=== PATIENT | female | born 1945 | race Caucasian/White ===

== ENCOUNTER 2024-10-30 10:47 | Day surgery (SDC) | payer MEDICARE, SELFPAY ==
--- NOTE | 2024-10-27 11:56 | EXP.HP ---
History of Present Illness *Admission Date: 10/30/24 *History of present illness: Mrs. Miller is a 78-year-old female who is here for screening/surveillance colonoscopy. She does have a history of chronic constipation. She did have a colonoscopy with me in March 2018 and had resolving self-limited colitis as well as for colon polyps (tubular adenomas x 4) which were removed. The patient does report right lower quadrant abdominal pain and ongoing constipation with bloating despite taking Linzess 72 mcg daily. She does state that the Linzess stopped working as well and now she only takes this twice a week. She does take probiotics and eats prunes. She still has a lot of hard stools and straining. She continues to have right lower quadrant abdominal pain that is there daily but can be more excruciating. She does state that she was hospitalized with this pain in 2020. She has had prior appendectomy and cholecystectomy but this has not helped with her pain. She does have a restricted diet. She reports no rectal bleeding, weight loss or family history of colon cancer. She is overdue for colonoscopy. [facility] Disclaimer: The information contained in this section may have been updated after the patient was seen, as this information can be updated by other users. Medical History Hyperlipidemia Hypertension History of cervical cancer Surgical History History of cholecystectomy History of bowel resection H/O knee surgery H/O spinal fusion Hx of appendectomy History of thyroidectomy H/O: hysterectomy Family History Other Cancer Coronary artery disease Hypertension Social History (Updated 10/30/24 @ 11:08 by Mary Blake RN) Smoking Status: Never smoker alcohol intake: never substance use type: denies use current occupational status: disabled Travel in the last 8 weeks?: None Have you lived/traveled outside [place] in past 30 days?: No Contact w/someone who lives/traveled outside US past 30 days?: No Exposure to someone with infectious disease in past 14 days?: No Do you have a fever (greater than 100.4 F or 38 C)?: No Have you tested positive for COVID-19?: No Exposed to someone with COVID-19 in past 14 days?: No Do you have a sore throat?: No Do you have a cough?: No Do you have any weakness?: No Are you experiencing any nausea/vomitting?: No Do you have any diarrhea?: No Are you experiencing any unusual bleeding?: No Do you have any muscle aches/pain?: No Do you have any abdominal pain?: No Are you experiencing loss of taste or smell?: No Other Medical History Have you received the Pneumonia Vaccine: Yes Review of Systems Review of Systems Review of systems (narrative): Negative *Cardiovascular Comments: Negative *Gastrointestinal Comments: Negative *Genitourinary Comments: Negative *Musculoskeletal Comments: Negative *Neurologic Comments: Negative Meds Home Medications and Allergies Home Medications ?Medication ?Instructions ?Recorded ?Confirmed ?Type aspirin 81 mg tablet,delayed 81 mg PO DAILY 08/28/24 10/30/24 History release (Adult Low Dose Aspirin) atorvastatin 10 mg tablet 10 mg PO DAILY 08/28/24 10/30/24 History cholecalciferol (vitamin D3) 125 125 mcg PO DAILY 08/28/24 10/30/24 History mcg (5,000 unit) capsule gabapentin 300 mg capsule 300 mg PO BID 08/28/24 10/30/24 History hydrochlorothiazide 25 mg tablet 25 mg PO DAILY 08/28/24 10/30/24 History losartan 100 mg tablet 100 mg PO DAILY 08/28/24 10/30/24 History metoprolol succinate 25 mg 25 mg PO ONCE 08/28/24 10/30/24 History tablet,extended release 24 hr zolpidem 5 mg tablet 5 mg PO HS PRN insomnia 08/28/24 10/30/24 History tenapanor 50 mg tablet (Ibsrela) 50 mg PO BID #60 tabs 09/27/24 10/30/24 Rx sodium,potassium,mag sulfates 17.5 See Rx Instructions PO .COMPLEX 10/16/24 10/30/24 Rx gram-3.13 gram-1.6 gram oral soln #354 mL (Suprep Bowel Prep Kit) New Prescriptions to Start Prescriptions: Allergies Allergy/AdvReac Type Severity Reaction Status Date / Time morphine AdvReac Nausea Verified 10/30/24 11:17 Exam *Routine HEENT Exam Head: Present normocephalic Eye: Present EOMI and PERRL ENT: Present mucous membranes moist *Routine Neck Exam Neck: Present supple *Routine Respiratory Exam Respiratory: Present CTA bilaterally *Routine Cardiovascular Exam Cardiovascular: Present RRR *Routine Abdominal Exam Abdominal: Present soft and normoactive bowel sounds; Absent tenderness *Routine Rectal Exam Rectal:: deferred *Routine Genitalia Exam Genitalia:: deferred *Routine Extremities Exam Extremities: Absent cyanosis, clubbing or edema *Routine Skin Exam Skin: Present warm; Absent rash *Routine Neurological Exam Neurological: Present alert and oriented X3 Assessment and Plan *Assessment and plan (1) Personal history of adenomatous and serrated colon polyps: Status: Acute Category: Medical Code(s): Z86.0101 - Personal history of adenomatous and serrated colon polyps (2) Bloating: Status: Acute Category: Medical Code(s): R14.0 - Abdominal distension (gaseous) (3) Screening for colon cancer: Status: Acute Category: Medical Code(s): Z12.11 - Encounter for screening for malignant neoplasm of colon Plan A/P: 1. Personal history of adenomatous colon polyps/screening for colon cancer is the preprocedural diagnosis. The patient will be anesthetized/sedated using MAC sedation. The patient has been seen and examined. Cardiac and lung assessment prior to the examination is stable. Proceed with planned screening colonoscopy.
[2024-10-29 09:35] VITALS: BMI 40.4
--- NOTE | 2024-10-30 07:18 | P.PCN_ITS ---
[facility] Procedure Note Date: 10/30/24 Time: 13:20 Procedure Note:: Colonoscopy Procedure Report: Colonoscopy with cold snare polypectomy Endoscopist: Ambrosio Lyn II, MD Referring physician: Sylvia Hall DO Date of Procedure: October 30, 2024 Equipment: Olympus [id number] adult colonoscope Sedation: MAC sedation Indication: Mrs. Miller is a 78-year-old female who is here for screening/surveillance colonoscopy. She does have a history of chronic constipation. She did have a colonoscopy with ut in March 2018 and had resolving self-limited colitis as well as for colon polyps (tubular adenomas x 4) which were removed. The patient does report right lower quadrant abdominal pain and ongoing constipation with bloating despite taking Linzess 72 mcg daily. She does state that the Linzess stopped working as well and now she only takes this twice a week. She does take probiotics and eats prunes. She still has a lot of hard stools and straining. She continues to have right lower quadrant abdominal pain that is there daily but can be more excruciating. She does state that she was hospitalized with this pain in 2020. She has had prior appendectomy and cholecystectomy but this has not helped with her pain. She does have a restricted diet. She reports no rectal bleeding, weight loss or family history of colon cancer. She is overdue for colonoscopy. The patient did previously have H. pylori. Procedure: Prior to the procedure, a history and physical exam was performed, and patient's medications and allergies were reviewed. The risks, benefits and alternatives of the sedation and procedure were discussed with the patient. All questions were answered and informed consent was obtained. The patient was brought to the procedure room. Patient identification and proposed procedure were verified by the physician and the nurse. The patient was placed in a left lateral decubitus position and the scope was passed under direct vision. Throughout the procedure, the patient's blood pressure, pulse, and oxygen saturations were monitored continuously. The colonoscopy was accomplished without difficulty. The patient tolerated the procedure well. Findings: On digital rectal examination there was normal rectal tone. There were no external hemorrhoids. The colonoscope was introduced through the anal canal to the rectum and advanced to the cecum. The ileocecal valve and appendiceal orifice were identified. The scope was advanced a short distance into the ileum which appeared grossly normal. The scope was then withdrawn into the colon. There were 2 colonic polyps (ascending x 1 (5 mm) and descending x 1 (4 mm)). Both of these were removed via cold snare polypectomy. The remaining cecum, ascending and transverse colon and mucosa were grossly normal. There were scattered diverticuli throughout the descending and sigmoid colon (LEFT colon). There was some pericolonic adhesions adjacent to the sigmoid colon with some fixed sigmoid from prior hysterectomy. The rectum itself was normal. Upon retroflexion within the rectum there were grade 1-2 internal hemorrhoids. The preparation was excellent throughout with Bonner Preparation Score of 9. The cecal time was 14 minutes. Impression: 1. Diminutive colonic polyps x 2 2. Left-sided diverticulosis 3. Sigmoid pericolonic adhesions/fixed sigmoid 4. Grade 1-2 internal hemorrhoids Plan: I will follow-up the polyp histology. I am not convinced that she will require any further preventive/screening colonoscopy. I do feel that her right lower quadrant abdominal pain is likely trapped gas and stool with functional abdominal pain. We will discuss treatment options.
[2024-10-30 11:07] VITALS: BP 148/99; PULSE 79; RESP 18; TEMP 36.3; O2SAT 95; BMI 40.4
[2024-10-30] MEDS: LACTATED RINGERS 1000ML 1,000 ML 50 ML IV (11:21)
--- NOTE | 2024-10-30 12:17 | P.PNANES_ITS ---
[facility] Disclaimer: The information contained in this section may have been updated after the patient was seen, as this information can be updated by other users. Medical History Hyperlipidemia Hypertension History of cervical cancer Surgical History History of cholecystectomy History of bowel resection H/O knee surgery H/O spinal fusion Hx of appendectomy History of thyroidectomy H/O: hysterectomy Family History Other Cancer Coronary artery disease Hypertension Social History (Updated 10/30/24 @ 11:08 by Mary Blake RN) Smoking Status: Never smoker alcohol intake: never substance use type: denies use current occupational status: disabled Travel in the last 8 weeks?: None Have you lived/traveled outside [place] in past 30 days?: No Contact w/someone who lives/traveled outside US past 30 days?: No Exposure to someone with infectious disease in past 14 days?: No Do you have a fever (greater than 100.4 F or 38 C)?: No Have you tested positive for COVID-19?: No Exposed to someone with COVID-19 in past 14 days?: No Do you have a sore throat?: No Do you have a cough?: No Do you have any weakness?: No Are you experiencing any nausea/vomitting?: No Do you have any diarrhea?: No Are you experiencing any unusual bleeding?: No Do you have any muscle aches/pain?: No Do you have any abdominal pain?: No Are you experiencing loss of taste or smell?: No [facility] Anesthesia Checklist Patient Identification Patient Identification: Verbal (Name & ) Structural Data Admitted From: Home Planned Operative Procedure/s: colonoscopy Consent for Planned Operative Procedure(s) Verified: Yes NPO Status Verified Time NPO: 00:00 Airway Assessment Mallampati Score:: Class II C-Spine Mobility Assessed: Yes TMJ Mobility Assessed: Yes Dentition: Good Dentition Neurological Assessment Level of Consciousness: Awake, Alert and Appropriate Anesthesia Plan Anesthesia Risk discussed: Yes Anesthesia Plan: Verified ASA Class: II Anesthesia Type: MAC
[2024-10-30 13:22] VITALS: BP 91/44; PULSE 58; RESP 14; TEMP 36.8; O2SAT 96
[2024-10-30 13:32] VITALS: BP 82/54; PULSE 62; RESP 16; O2SAT 95
[2024-10-30 13:42] VITALS: BP 94/66; PULSE 66; RESP 16; O2SAT 97
[2024-10-30 13:52] VITALS: BP 124/68; PULSE 57; RESP 16; O2SAT 95
[2024-10-30 14:08] VITALS: BP 135/75; PULSE 56; RESP 18; TEMP 36.8; O2SAT 95
== END 2024-10-30 14:08 | disposition home or self-care (01) ==
PROVIDERS: PCP Family Medicine; Visit Provider Internal Medicine Gastroenterology
PROC: 0DJD8ZZ Inspection of Lower Intestinal Tract, Via Natural or Artificial Opening Endoscopic (ICD-10-PCS; CPT 45378; principal; 2024-10-30 12:30)
DX: Z12.11 Encounter for screening for malignant neoplasm of colon (principal); D12.2 Benign neoplasm of ascending colon; D12.4 Benign neoplasm of descending colon; K57.30 Diverticulosis of large intestine without perforation or abscess without bleeding; K64.0 First degree hemorrhoids; K64.1 Second degree hemorrhoids; K66.0 Peritoneal adhesions (postprocedural) (postinfection); K59.09 Other constipation; I10 Essential (primary) hypertension; E78.5 Hyperlipidemia, unspecified; Z79.82 Long term (current) use of aspirin; Z86.0101 Personal history of adenomatous and serrated colon polyps; Z88.5 Allergy status to narcotic agent; Z90.710 Acquired absence of both cervix and uterus
CPT/HCPCS: 45385; J2003; J2704; J7120